=== PATIENT | male | born 1945 | race Caucasian/White ===

== ENCOUNTER 2019-02-03 10:18 | Day surgery (SDC) | payer MEDICARE, MEDICAID ==
[~2019-02-03] VITALS: Ht 167.6 cm; Wt 59.8 kg
[2019-02-03] VITALS (9 sets, daily range): BP systolic 130–162; BP diastolic 70–93
[2019-02-03] MEDS ORDERED: diphenhydrAMINE 25mg capsule PO PRN (10:35)
[2019-02-03] MEDS ORDERED: normal saline 1,000 ML IV SCH (10:35)
[2019-02-03] MEDS ORDERED: OMEG-166 PO (11:17)
[2019-02-03] MEDS ORDERED: MULT1TAB74 PO (11:18)
[2019-02-03] MEDS ORDERED: DABI150C PO (11:28)
[2019-02-03 11:29] LABS: ALBUMIN 3.4 G/DL (3.4-5.0); ANION GAP 7 (8-16); BLOOD UREA NITROGEN 13 MG/DL (7-18); CALCIUM 9.1 MG/DL (8.5-10.1); CHLORIDE 107 MMOL/L (99-107); CREATININE 1.08 MG/DL (0.60-1.10); GLUCOSE 95 MG/DL (70-104); MAGNESIUM 1.9 MG/DL (1.5-2.4); POTASSIUM 4.1 MMOL/L (3.5-5.1); SODIUM 142 MMOL/L (135-145); TOTAL CARBON DIOXIDE 28.2 MMOL/L (24-32); eGFR 67 ML/MIN
[2019-02-03] MEDS ORDERED: DIGO125T PO (11:29)
[2019-02-03] MEDS ORDERED: LISI2.5T2 PO (11:30)
[2019-02-03] MEDS ORDERED: ATOR10TA PO (11:31)
[2019-02-03] MEDS ORDERED: POTA99TA21 PO (11:33)
[2019-02-03] MEDS ORDERED: UMEC62.5 INH (11:34)
[2019-02-03] MEDS ORDERED: midazolam 2 mg/2 ml injection ONE ×2 (11:35→12:27)
[2019-02-03] MEDS ORDERED: iohexol 350MG/ML 100ml bottle IV ONE ×2 (11:36→13:10)
[2019-02-03] MEDS ORDERED: iohexol 350 MG/ML 50ML vial IV ONE (11:36)
[2019-02-03] MEDS ORDERED: LIDOcaine 1% (10mg/ml)w/preservative injection 20ml MDV ONE (11:36)
[2019-02-03] MEDS ORDERED: fentaNYL/PF 50MCG/1 ML 2ML syringe ONE (11:36)
[2019-02-03 12:14] LABS: BASOPHILS % (AUTO) 0.2 % (0-1); EOSINOPHILS # (AUTO) 0.2 X10'3 (0-0.9); EOSINOPHILS % (AUTO) 1.8 % (0-6); HEMATOCRIT 40.7 % (42.0-52.0); HEMOGLOBIN 13.2 g/dl (14.0-17.9); LYMPHOCYTES # (AUTO) 1.3 X10'3 (1.1-4.8); LYMPHOCYTES % (AUTO) 14.6 % (21-51); MEAN CORPUSCULAR HGB CONC 32.6 g/dL (33.0-36.5); MEAN CORPUSCULAR VOLUME 85.9 FL (78-98); MEAN PLATELET VOLUME 7.8 FL (7.4-10.4); MONOCYTES # (AUTO) 0.9 X10'3 (0-0.9); MONOCYTES % (AUTO) 10.1 % (2-12); NEUTROPHILS # (AUTO) 6.6 X10'3 (1.8-7.7); NEUTROPHILS % (AUTO) 73.3 % (42-75); PLATELET COUNT 173 X10'3 (140-440); RED BLOOD COUNT 4.73 X10'6 (4.70-6.10); RED CELL DISTRIBUTION WIDTH 16.8 % (11.5-14.5)
[2019-02-03] MEDS ORDERED: adenosine 90 MG/30ml kit =/or below 120kg Cath Lab IV ONE (13:06)
== END 2019-02-03 17:05 | disposition home or self-care (01) ==
LOC: SSTAY O 10:18
PROVIDERS: ATTEND Internal Medicine Cardiovascular Disease
DX: I25.10 Atherosclerotic heart disease of native coronary artery without angina pectoris (principal); I27.20 Pulmonary hypertension, unspecified; I49.5 Sick sinus syndrome; I48.1 Persistent atrial fibrillation; I10 Essential (primary) hypertension; E78.5 Hyperlipidemia, unspecified; J44.9 Chronic obstructive pulmonary disease, unspecified; F10.10 Alcohol abuse, uncomplicated; Z95.810 Presence of automatic (implantable) cardiac defibrillator; Z98.890 Other specified postprocedural states; Z87.891 Personal history of nicotine dependence; Z79.01 Long term (current) use of anticoagulants; Z79.899 Other long term (current) drug therapy
CPT/HCPCS: 36415; 80048; 83735; 85025; 85610; 93005; 93460; 93571; 93572; 99152; 99153; C1769; C1894; J0153; J1644; J2001; J2250; J3010; J7030; Q9967; A4620; A6258; C1760